=== PATIENT | male | born 1940 | race Caucasian/White ===

== ENCOUNTER 2024-04-27 10:35 | Emergency (ER) | payer MEDICARE, SELFPAY ==
[2024-04-27 10:49] VITALS: BP 141/63
--- NOTE | 2024-04-27 12:22 | ED.GENMED ---
History of Present Illness
General
Chief Complaint: Back Pain
Source: patient
Time Seen by Provider: 04/27/24 11:28
History of Present Illness
History of Present Illness:
83-year-old male presents to the emergency room complaining of back pain. Patient states the pain is located in the left low back. It does not radiate. The pain makes it difficult for him to get out of bed and move. He has been experiencing the
pain for the past 3 days or so. It does get better with Aleve. Seem worse this morning. As the days gone on and has improved however. No fever or chills. No trauma. Patient suspects he got worse after walking 'more than I should'.
Past History
Past History
ED Past Medical History: HTN, Hypercholesterolemia and Other (Kidney stones)
ED Past Surgical History: None
Social History
Tobacco: Former smoker
Alcohol: Occasional
Personal:
Living: with family
Phy Exam
Physical Exam
Physical Exam:
General: Awake, Alert, Oriented X3. No acute distress.
Vitals: unremarkable
Head: Atraumatic
Eyes: Pupils equal, EOMI
Throat: Airway intact, no exudates
Neck: Trachea midline
Lungs: Clear and equal b/l
Heart: Regular rate, no murmurs
Abd: Soft, Nontender, No pulsatile mass
Back: No CVA tenderness to percussion
Neuro: Non focal
Skin: Warm, dry, no rash
Extremities: pulses equal b/l, no edema
Course
Orders/Labs/Results
Orders:
Orders
04/27/24 11:39
Lumbar Spine Complete, 4 View [CR Lumbar Spine Comp Min 4 Vw*] Urgent
Comment:
Reason For Exam: right low back pain
04/27/24 12:19
Urinalysis Reflex To Culture Urgent
Date Specimen was Collected: 04/27/24
Time Specimen was Collected: 12:17
04/27/24 13:06
Lidocaine [Lidocaine 4% Patch] 1 patch TOPICAL NOW STA
Apply Lidocaine patch(s) to:: left lumbar
Vital Signs
Initial and Last Documented VS:
Initial Vital Signs
Temp Pulse Resp BP Pulse Ox
98.0 F 73 16 141/63 98
04/27/24 10:49 04/27/24 10:49 04/27/24 10:49 04/27/24 10:49 04/27/24 10:49
Last Documented Vital Signs
Temp Pulse Resp BP Pulse Ox
98.2 F 82 16 151/73 97
04/27/24 13:30 04/27/24 13:30 04/27/24 13:30 04/27/24 13:30 04/27/24 13:30
MDM/Problems Addressed
Differential Diagnosis Includes:
compression fx, shingles, djd, UTI, kidney stone
MDM/Problems Addressed:
Patient presents with left-sided low back pain. Urine is normal. X-ray showed DJD but no acute fracture or other findings. Patient has renal insufficiency noted on previous labs. Told the patient to avoid oral NSAIDs. Tried topical Voltaren and
lidocaine patches. Follow-up with primary and perhaps pain management if no better.
*Critical Care Note
Total Time (30-74mins, 75-104mins- exclusive of procedures): Not Applicable
ED Attending Note
-
Portions of this chart may have been created with voice recognition software.� Occasional wrong word or��sound alike� substitutions may have occurred due to the inherent limitations of voice recognition software.
Discharge Plan
Departure
Patient Disposition: Home (Routine Discharge)
Date of Disposition: 04/27/24
Time of Disposition: 13:38
Patient with high blood pressure during this ER visit?: Yes
Condition: Good
Discharge Problem:
Degenerative joint disease (DJD) of lumbar spine, Acute lumbar back pain
Instructions: Low Back Pain (DC)
Prescriptions:
No Action
simvastatin 40 MG tablet
40 mg PO HS
valsartan 160 MG tablet
160 mg PO DAILY
acetaminophen 325 MG tablet
650 mg PO Q4HPRN PRN (Reason: MILD PAIN) Qty: 20 0RF
aspirin 325 MG tablet,delayed release (DR/EC)
325 mg PO DAILY Qty: 30 0RF
Rx Instructions:
Please take high dose ASA 325 mg for one month only, followed by your regular dose of baby ASA at 81 mg daily
ferrous sulfate [FeroSul] 325 MG tablet
325 mg PO DAILY Qty: 30 0RF
mupirocin 1 APPLIC ointment
1 applic intranasal BID Qty: 1 0RF
sennosides-docusate sodium 1 TABLET tablet
1 - 2 tab PO DAILYPRN PRN (Reason: constipation) Qty: 20 0RF
oxycodone-acetaminophen 5 MG/325 MG tablet
1 tab PO Q4HPRN PRN (Reason: moderate pain) Qty: 5 0RF
aspirin 81 MG tablet,chewable
81 mg PO DAILY Qty: 30 0RF
Rx Instructions:
ASA 325 mg for one month only, followed by ASA at 81 mg daily
Referrals:
Roberth Watson MD [Active] -
Josy Haines CRNP [Family Provider] -
Activity Restrictions/Additional Instructions:
I believe your back pain is related to arthritic changes in the lumbar spine. You can use Voltaren cream to help with the discomfort. You can apply this 4 times a day. I also recommend trying Salonpas lidocaine patches. Apply to the area once a
day. I have given you contact information for a doctor who specializes in managing back pain. The pain is not improving give him a call. Also call your primary care provider.
Interventions
Interventions:
*Risk Screen - Suicide Last Done: 04/27/24 10:49
*General Assessment Last Done: 04/27/24 10:35
*Neglect/Abuse Screening Last Done: 04/27/24 10:49
ED- Fall Risk Assessment Last Done: 04/27/24 10:35
*ED COVID-19 Vaccine History Last Done: 04/27/24 10:35
*Nursing Disposition Last Done: 04/27/24 13:50
ED-Musculoskeletal Assessment Last Done: 04/27/24 10:35
Discharge Date and Time
Discharge Date/Time: 04/27/24 13:50
Print Language: TURKISH
[2024-04-27 12:35] LABS: Urine Albumin Trace (Neg - Trace); Urine Bilirubin Negative (Negative); Urine Character Clear (Clear); Urine Color Yellow; Urine Glucose Negative (Negative); Urine Ketone Negative (Negative); Urine Leukocyte Negative (Negative); Urine Nitrite Negative (Negative); Urine Occult Blood Negative (Negative); Urine Specific Gravity 1.025 (<1.030); Urine Urobilinogen Negative (Neg - 1+)
[2024-04-27 13:30] VITALS: BP 151/73
[2024-04-27] MEDS: LIDOCAINE 4% PATCH 1 PATCH TOPICAL (13:32)
== END 2024-04-27 13:50 | disposition home or self-care (01) ==
LOC: EMR 10:35
PROVIDERS: EMERGENCY PHYSICIAN Emergency Medicine; FAMILY PHYSICIAN Nurse Practitioner Family
DX: M51.369 Other intervertebral disc degeneration, lumbar region without mention of lumbar back pain or lower extremity pain (principal); M54.50 Low back pain, unspecified; I10 Essential (primary) hypertension; E78.00 Pure hypercholesterolemia, unspecified; Z87.442 Personal history of urinary calculi; Z87.891 Personal history of nicotine dependence
CPT/HCPCS: 99283; 72110; 81003

== ENCOUNTER 2025-03-04 14:55 | Emergency (ER) | payer OTHER, SELFPAY ==
[2025-03-04 15:02] VITALS: BP 142/55
--- NOTE | 2025-03-04 15:47 | ED.GENMED ---
History of Present Illness
General
Chief Complaint: Back Pain
Source: patient and family
Exam Limitations: none
Time Seen by Provider: 03/04/25 15:35
Nursing documentation reviewed up to this point in time: agreed with
History of Present Illness
History of Present Illness:
Patient is an 84-year-old female presents to the ER for evaluation of low back pain. Patient started with lower back pain on the right side about a month ago but has gotten progressively worse. He normally does walk around lives alone and has been
walking however today complained of pain while getting out of bed this morning. He feels pain in his right lower back which goes slightly to his right lateral hip. Pain is worse with movement.
he denies any trauma. He denies any pain when he moves his hip. His back pain seems to start when he tries to twist or change positions. He denies any urinary frequency urgency. Denies any fever chills. Denies any bowel bladder incontinence.
Denies any numbness Tingling weakness in legs. He does not take anything for pain. He was able to get around and walk today and did take a little walk with his cane outside.
Past History
Past History
ED Past Medical History: HTN, Hypercholesterolemia and Other (Kidney stones)
ED Past Surgical History: None
Social History
Tobacco: Former smoker
Alcohol: Occasional
Personal:
Living: with family
Phy Exam
General Physical Exam
General Presentation: no apparent distress
General age: appears stated age
General Skin: warm and dry
General Habitus: elderly
General Mental: alert
General Hydration: appears well hydrated
Neurological Exam
Neurological Exam: alert and oriented x3
Musculoskeletal Exam
Musculoskeletal Exam: other (No midline bony tenderness mildly tender to the right paralumbar region normal inspection)
Skin Exam
Skin Exam: normal color and warm/dry
Psychiatric Exam
Psychiatric Exam: normal mood/affect
Course
Orders/Labs/Results
Orders:
Orders
03/04/25 15:48
Lumbar Spine Complete, 4 View [CR Lumbar Spine Comp Min 4 Vw*] Urgent
Comment:
Reason For Exam: right lower back pain
03/04/25 15:49
Acetaminophen [Tylenol] 650 mg PO NOW STA
03/04/25 15:58
Lidocaine [Lidocaine 4% Patch] 1 patch .ROUTE .STK-MED ONE
03/05/25 08:00
Lidocaine [Lidocaine 4% Patch] 1 patch TOPICAL DAILY
Apply Lidocaine patch(s) to:: right lower back pain
Vital Signs
Initial and Last Documented VS:
Initial Vital Signs
Temp Pulse Resp BP Pulse Ox
98.0 F 70 18 142/55 100
03/04/25 15:02 03/04/25 15:02 03/04/25 15:02 03/04/25 15:02 03/04/25 15:02
Last Documented Vital Signs
Temp Pulse Resp BP Pulse Ox
98.0 F 70 16 142/55 100
03/04/25 15:02 03/04/25 15:02 03/04/25 16:00 03/04/25 15:02 03/04/25 15:48
MDM/Problems Addressed
Differential Diagnosis Includes:
Not limited to muscular pain, arthritis less likely compression fracture
MDM/Problems Addressed:
Symptoms are consistent muscular back pain. Patient is awake alert no acute distress no recent trauma. No acute findings on x-ray. No midline tenderness normal neurological exam complains of discomfort with twisting turning. He was able to
ambulate back and forth to bathroom here steady with his cane in no acute distress. Chronic changes on x-ray. Will DC with Tylenol and lidocaine patch with outpatient follow-up
*Radiology
Radiology exam reviewed: radiology read reviewed
*Pulse Oximetry
SaO2: 100
Oxygen Mode of Delivery: Room air
Patient hypoxic: no
*Critical Care Note
Total Time (30-74mins, 75-104mins- exclusive of procedures): Not Applicable
ED Attending Note
-
Portions of this chart may have been created with voice recognition software.� Occasional wrong word or��sound alike� substitutions may have occurred due to the inherent limitations of voice recognition software.
Discharge Plan
Departure
Patient Disposition: Home (Routine Discharge)
Date of Disposition: 03/04/25
Time of Disposition: 19:02
Patient with high blood pressure during this ER visit?: Yes
Condition: Fair
Covid-19: Not Applicable
Discharge Problem:
Low back pain
Instructions: Low Back Pain (DC), BLOOD PRESSURE
Prescriptions:
New
lidocaine 5 % adhesive patch,medicated
1 patch topical DAILY Qty: 15 0RF
No Action
simvastatin 40 MG tablet
40 mg PO HS
valsartan 160 MG tablet
160 mg PO DAILY
acetaminophen 325 MG tablet
650 mg PO Q4HPRN PRN (Reason: MILD PAIN) Qty: 20 0RF
aspirin 325 MG tablet,delayed release (DR/EC)
325 mg PO DAILY Qty: 30 0RF
Rx Instructions:
Please take high dose ASA 325 mg for one month only, followed by your regular dose of baby ASA at 81 mg daily
ferrous sulfate [FeroSul] 325 MG tablet
325 mg PO DAILY Qty: 30 0RF
mupirocin 1 APPLIC ointment
1 applic intranasal BID Qty: 1 0RF
sennosides-docusate sodium 1 TABLET tablet
1 - 2 tab PO DAILYPRN PRN (Reason: constipation) Qty: 20 0RF
oxycodone-acetaminophen 5 MG/325 MG tablet
1 tab PO Q4HPRN PRN (Reason: moderate pain) Qty: 5 0RF
aspirin 81 MG tablet,chewable
81 mg PO DAILY Qty: 30 0RF
Rx Instructions:
ASA 325 mg for one month only, followed by ASA at 81 mg daily
Referrals:
Maximino,Demetri J, PA-C [Family Provider]
Activity Restrictions/Additional Instructions:
As discussed Tylenol as needed for pain. A prescription for lidocaine patch was also sent to your pharmacy. Follow-up with family doctor in the next 2 days for reevaluation return if any worsening of symptoms
Interventions
Interventions:
*Risk Screen - Suicide Last Done: 03/04/25 15:02
*General Assessment Last Done: 03/04/25 16:07
*Neglect/Abuse Screening Last Done: 03/04/25 15:02
*ED- Fall Risk Assessment Last Done: 03/04/25 16:07
*Nursing Disposition Last Done: 03/04/25 19:22
ED-Musculoskeletal Assessment Last Done: 03/04/25 16:07
Discharge Date and Time
Discharge Date/Time: 03/04/25 19:22
Print Language: [id number]
[2025-03-04] MEDS: TYLENOL 650 MG PO (16:03)
[2025-03-04] MEDS: LIDOCAINE 4% PATCH 1 PATCH TOPICAL (16:03)
== END 2025-03-04 19:22 | disposition home or self-care (01) ==
LOC: EMR 14:55
PROVIDERS: EMERGENCY PHYSICIAN Emergency Medicine; FAMILY PHYSICIAN Physician Assistant Medical
DX: M54.50 Low back pain, unspecified (principal); I10 Essential (primary) hypertension; E78.00 Pure hypercholesterolemia, unspecified; Z87.891 Personal history of nicotine dependence
CPT/HCPCS: 99283; 72110